=== PATIENT | male | born 1985 | race Caucasian/White ===

== ENCOUNTER 2019-10-01 00:46 | Emergency (ER) | payer OTHER, SELFPAY | END 2019-10-01 01:20 | disposition home or self-care (01) | LOC: ERS 00:46 | DX: R05 Cough (principal); F25.9 Schizoaffective disorder, unspecified; F41.9 Anxiety disorder, unspecified; F17.210 Nicotine dependence, cigarettes, uncomplicated | CPT/HCPCS: 99281 ==

== ENCOUNTER 2021-07-15 16:46 | Emergency (ER) | payer OTHER | END 2021-07-15 17:55 | disposition home or self-care (01) | LOC: ERS 16:46 | DX: S29.011A Strain of muscle and tendon of front wall of thorax, initial encounter (principal); F17.290 Nicotine dependence, other tobacco product, uncomplicated; X50.0XXA Overexertion from strenuous movement or load, initial encounter | CPT/HCPCS: 71045; 93005 ==